=== PATIENT | male | born 1960 | race American Indian/Alaskan Native ===

== ENCOUNTER 2017-06-18 07:58 | Outpatient (CLI) | payer OTHER ==
--- NOTE | 2017-06-18 10:35 | XRay Report ---
XRAY LEFT HAND THREE VIEWS: 06/18/17 07:58:00 CLINICAL: Left hand pain. FINDINGS: Moderate osteoarthritis at the first MCP joint and a lesser degree of osteoarthritis at the basal and IP joints of the thumb. Mild osteoarthritis at the DIP joints and PIP joints of the digits. No erosions. The carpal bones are intact. The distal radius and ulna are intact. Mild soft tissue swelling of the thumb and mild soft tissue swelling at the PIP joints of digits 2 through 5. IMPRESSION: Osteoarthritis with greatest involvement at the first MCP joint.
== END 2017-06-18 07:59 | disposition home or self-care (01) ==
LOC: SPVIMAG 07:58
PROVIDERS: ATTEND Orthopaedic Surgery
DX: M18.9 Osteoarthritis of first carpometacarpal joint, unspecified (principal)